=== PATIENT | male | born 2000 | race Caucasian/White ===

== ENCOUNTER 2020-06-08 09:01 | Outpatient (REF) | payer OTHER, SELFPAY | END 2020-06-08 09:02 | disposition home or self-care (01) | LOC: HO.LAB 09:01 | PROVIDERS: Visit Provider Internal Medicine | DX: Z20.828 Contact with and (suspected) exposure to other viral communicable diseases (principal) | CPT/HCPCS: C9803; U0003 ==

== ENCOUNTER 2020-07-29 13:25 | Outpatient (REF) | payer OTHER, SELFPAY | END 2020-07-29 13:26 | disposition home or self-care (01) | LOC: HO.LAB 13:25 | PROVIDERS: Visit Provider Internal Medicine | DX: Z20.828 Contact with and (suspected) exposure to other viral communicable diseases (principal) | CPT/HCPCS: C9803; U0003 ==

== ENCOUNTER 2020-08-06 07:52 | Outpatient (REF) | payer OTHER, SELFPAY | END 2020-08-06 07:53 | disposition home or self-care (01) | LOC: HO.LAB 07:52 | PROVIDERS: Visit Provider Internal Medicine | DX: Z20.828 Contact with and (suspected) exposure to other viral communicable diseases (principal) | CPT/HCPCS: 36415; C9803; U0003 ==

== ENCOUNTER 2023-06-29 15:57 | Emergency (ER) | payer OTHER, SELFPAY ==
--- NOTE | ~2023-06-29 | US_ITS ---
EXAMINATION: US SCROTUM CLINICAL INFORMATION: Left testicular lump for 6 months. COMPARISON: None available. TECHNIQUE: A sonogram of the scrotum was performed assessing agosto-scale appearance and color Doppler flow. Spectral Doppler analysis of the arterial and venous flow were performed in the testes bilaterally. FINDINGS: RIGHT: Right testicle measures 4.7 x 2 x 3.7 cm, volume 18 mL. No focal testicular parenchymal lesions are visualized. Spectral Doppler analysis of the arterial and venous flow is normal in the right testis. Right epididymal head is normal in size. Incidentally noted small 0.4 cm appendix testis. No right hydrocele or varicocele is seen. Right epididymal Doppler flow is normal. LEFT: Left testicle measures 4.7 x 1.8 x 2.9 cm, volume 13 mL. In the region of the palpable abnormality, there is a 0.2 x 0.1 x 0.2 cm anechoic, simple appearing capsular cyst. Spectral Doppler analysis of the arterial and venous flow is normal in the left testis. Small approximately 0.1 cm calcification adjacent to the medial scrotal surface of doubtful clinical significance. Left epididymal head is normal in size. Small 0.1 cm simple appearing epididymal head cyst. No left hydrocele or varicocele is seen. Left epididymal Doppler flow is normal. US/US scrotum IMPRESSION: 1. In the region of the palpable abnormality, there is a 0.2 cm simple appearing capsular testicular cyst on the left side. Out of precaution, recommend a follow-up ultrasound in 3-6 months for reevaluation. 2. Incidentally noted subcentimeter appendix testis on the right side and subcentimeter simple appearing epididymal head cyst on the left side. 3. Very small extratesticular calcification adjacent to the medial surface of the left testicle.
--- NOTE | 2023-06-29 16:34 | ED.MALEGU ---
HPI - Male Genitourinary General Chief complaint: Urogenital-Male Stated complaint: lump in left testicle Time Seen by Provider: 06/29/23 17:42 Source: patient, RN notes reviewed and old records reviewed Mode of arrival: ambulatory History of Present Illness [facility] Narrative: 22-year-old male with no significant past medical history presenting to the ED complaining of nonpainful lump to left testicle x6 months. States feels like area is growing. Denies drainage from area, dysuria/hematuria, penile discharge, testicular pain, abdominal pain, nausea/vomiting. Patient is sexually active. Denies concern for STI. Onset (ago): month(s) Related Data Allergies Allergy/AdvReac Type Severity Reaction Status Date / Time mite-Dermatophagoides Allergy Unknown Verified 06/29/23 16:40 walker fernandes [dust mite - [place]] Review of Systems Review of Systems: Constitutional: No Fever, No Chills, No Fatigue, No Malaise ENT/Mouth: No Ear Pain, No Nasal Congestion, No sore throat, No Rhinorrhea, No Swallowing Difficulty Cardiovascular: No Chest Pain, No SOB Respiratory: No Cough, No Sputum, No Dyspnea Gastrointestinal: No Nausea, No Vomiting, No Diarrhea, No Constipation, No Abdominal pain Genitourinary: No penile pain/lesions or discharge, No irregular bleeding, No Dysuria, No Urinary Frequency, No Hematuria, No Urinary Incontinence/retention, No Flank Pain Musculoskeletal: No joint pain, No Myalgias Skin: +Skin Lesions, No rash Yes all other systems are reviewed and are negative Constitutional: Constitutional: Reports as per [facility] Past Medical History Attestation statement: The following information was validated with the patient. Source: old records reviewed Social History Social History Advance Directives: No Advance Directives Information Provided: No Physical Exam Vital Signs: Vital Signs: Last Vital Signs Temp 98.2 F 06/29/23 16:35 Pulse 88 06/29/23 16:35 Resp 16 06/29/23 16:35 BP 130/74 06/29/23 16:35 Pulse Ox 98 06/29/23 16:35 O2 Del Method Room Air 06/29/23 16:35 BMI result Body Mass Index 28.5 Const: General: cooperative, healthy appearing and no acute distress Orientation/consciousness: patient oriented x3 Limitations: no limitations HEENT: Head: Yes normal to inspection and Yes atraumatic Ears: hearing grossly normal bilaterally General nose exam: Normal external nose present Face and sinus: Yes normal facial exam Eyes: General: appearance normal, both eyes and all related structures EOM: EOMs intact bilaterally Neck: Neck: Yes normal visual inspection and Yes no meningeal signs Resp: Effort & Inspection: normal respiratory effort and no respiratory distress Cardio: Rate: regular rate GI: Inspection: Yes normal to inspection Palpation (GI): Soft to palpation, nontender, no guarding and not rigid : Other: +small 2-3mm sized indurated area noted to left scrotum. Nonmobile, nontender. No erythema/warmth or fluctuance. No crepitus. No streaking General: Yes no CVA tenderness Penis: normal penis Scrotum: no ecchymosis, not erythematous and no inguinal hernias Testes: Testes normal Back/Spine/Pelvis: Back: no CVA tenderness Skin: Rashes: no rashes Wounds: no wounds Neuro: General: patient oriented x3, tone normal and no meningeal signs Cranial nerves: Yes CN's II-XII intact bilaterally Gait exam (Neuro): Normal gait present Extrem: General: Yes normal to inspection Course Course Course Narrative: This is an RME: Additional HPI, ROS, PE not included below will be deferred to primary provider. Patient is a 22 male who presents to the emergency department for evaluation of a lump to the left testicle. This was first noticed 6-7 months ago. Had a routine appointment today and mentioned it, was referred to come to the emergency department for evaluation. There is no pain, no difficulty urinating, no pain with urination,no penile discharge. Reports slight increase in size since he first noticed it. Denies concern for STI. Denies known family history of cancer. Plan: US -1827--ED care transferred to [facility] pending UA and ultrasound. Dispo per results Reevaluation(s) Reevaluation #1: US/US scrotum IMPRESSION: 1. In the region of the palpable abnormality, there is a 0.2 cm simple appearing capsular testicular cyst on the left side. Out of precaution, recommend a follow-up ultrasound in 3-6 months for reevaluation. 2. Incidentally noted subcentimeter appendix testis on the right side and subcentimeter simple appearing epididymal head cyst on the left side. 3. Very small extratesticular calcification adjacent to the medial surface of the left testicle. Patient made aware of the above results. Advised outpatient follow-up with Urology, and repeat ultrasound. All questions answered. Stable for discharge. Time: 19:58 Medical Decision Making Medical Decision Making [facility] [place] Narrative: 22-year-old male with no significant past medical history presenting to the ED complaining of nonpainful lump to left testicle x6 months. On exam vital signs stable, NAD, nontoxic appearing, physical exam as noted above. Concern for indurated cyst vs folliculitis vs ? STI. Low suspicion for hernia, epididymitis/orchitis, testicular torsion, appendicitis/diverticulitis or stone Plan: UA, CT NG. ultrasound ordered in triage Please refer to course for remaining clinical decision making, interpretation of labs/imaging results, and discussions with consultants and/or family members. Differential Diagnosis Differential Diagnoses: The differential diagnosis associated with the presentation includes As above Lab Data [facility] [place] Lab Attestation statement: I reviewed the patient's lab results. Labs: Lab Results 06/29/23 Range/Units 18:56 Urine Color Dark Yellow Urine Appearance Clear Urine pH 6.0 (5.0-9.0) Ur Specific [place] >= 1.030 H (1.005-1.025) Urine Protein Trace (Neg-Trace) mg/dL Urine Glucose (UA) Negative (Negative) mg/dL Urine Ketones 80 (Negative) mg/dL Urine Blood Negative (Negative) Urine Nitrite Negative (Negative) Ur Leukocyte Esterase Negative (Negative) Independent Interpretation I performed an independent interpretation of an: Ultrasound Radiology Impression Discussion of test interpretation with radiology: I have reviewed the radiologist's reading. External Record Review External record reviewed: Inpatient record, Office record, Outpatient record, Prior outpatient labs, Prior outpatient radiology, Primary care record and Outside ED record Tests considered The following testing was considered but not selected: As above Discharge Plan Discharge Clinical Impression: Lesion of scrotum Patient Disposition: Home, Self-Care Instructions: Testicle Pain (ED) Additional Instructions: You need to follow-up with urology. Call to make an appointment Your ultrasound today reveals a cyst to the area of the lump you have described. It is recommended that you have a repeat ultrasound in 3-6 months. If symptoms persist or worsen, area becomes painful, is rapidly growing, turns red, you are unable to urinate have abdominal pain or fever return to the ED Referrals: [facility] [Provider Group]
[2023-06-29 16:35] VITALS: BP 130/74; PULSE 88; RESP 16; TEMP 36.8; O2SAT 98; BMI 28.5
[2023-06-29 19:08] LABS: Appearance Urine Clear; Color Urine Dark Yellow; Glucose Urine UA Negative (Negative); Leukocyte Esterase Urine Negative (Negative); Nitrite Urine Negative (Negative); Specific Gravity - Urine >= 1.030 (1.005-1.025); Urine Blood Negative (Negative); Urine Ketones 80 mg/dL (Negative); Urine Protein Trace mg/dL (Neg-Trace)
[2023-06-30 01:20] LABS: CT PCR NOT DETECTED (Not Detect.); NG PCR NOT DETECTED (Not Detect.)
== END 2023-06-29 20:16 | disposition home or self-care (01) ==
PROVIDERS: Physician Assistant; Emergency Provider Emergency Medicine
DX: N50.812 Left testicular pain (principal); N50.82 Scrotal pain; N50.89 Other specified disorders of the male genital organs; N50.811 Right testicular pain; R10.2 Pelvic and perineal pain; Z79.899 Other long term (current) drug therapy
CPT/HCPCS: 0353U; 76870; 81003; 99282; 99283; 99284

== ENCOUNTER 2023-08-07 14:56 | Outpatient (AMB) | payer OTHER, SELFPAY ==
--- NOTE | 2023-08-07 15:04 | A.OFFVIS_ITS ---
Intake Intake Visit Reasons: testicular cyst Intake Note: New Patient presents for initial visit for testicular cyst Urology Medications: none Blood Thinner: none Pipe Tester Required: No Accompanied by: Self / Same As Patient Allergies mite-Dermatophagoides farinae, walker [dust mite - [place]] Allergy (Verified 08/07/23 15:51) Unknown Medication List - Last Reconciled 08/07/23 by ELICIA Pascual No Known Home Meds HPI HPI Comments History of Present Illness Details Christophe is a very pleasant 22-year-old male patient. He presents to the office today as a new patient for testicular cyst. In discussion with the patient today reports having seeked emergency room care approximately 1 month ago for a small testicular lump he had noted while washing himself in the shower. In review of patient's chart it appears scrotal ultrasound was ordered and performed. These results reviewed with the patient today. In the region of the palpable abnormality there is a 0.2 cm simple appearing capsular testicular cyst on the left side. Subcentimeter simple appearing epididymal head cyst on the left side. When asked patient reports palpable abnormality has since resolved. In assessment of the patient today no abnormalities noted during assessment of the penis, scrotum, and testicles. No pain elicited on exam. Reassurance provided. He otherwise denies any bothersome urinary issues or concerns. He denies urinary urgency, urinary frequency, incontinence, nocturia, hematuria, dysuria, foul smelling urine, changes to urinary stream, flank pain, fever, and or chills. He is happy with his current voiding parameters. Review of Systems Const All systems reviewed & are unremarkable except as noted in HPI and below Physical Exam Const General: cooperative, healthy appearing, comfortable, no acute distress, well developed, alert and awake Orientation/consciousness: patient oriented x3 Limitations: no limitations HEENT Head: Yes normal to inspection, Yes normocephalic and Yes atraumatic Ears: hearing grossly normal bilaterally Eyes General: appearance normal, both eyes and all related structures Neck Neck: Yes normal visual inspection and Yes trachea midline Chest Chest palpation & inspection: normal inspection of the chest Resp Effort & Inspection: normal respiratory effort and able to speak in complete sentences Cardio Rate: regular rate GI Inspection: Yes normal to inspection General: Yes no CVA tenderness Male General Exam: Yes normal external exam Penis: normal penis Meatus: meatus normal Scrotum: scrotum normal Testes: Testes normal Back/Spine/Pelvis Back: no CVA tenderness Skin General skin exam: no rashes or lesions noted Neuro General: patient oriented x3 Extrem General: Yes normal to inspection Psych Appearance: grossly normal and well kempt Mental Status: mental status grossly normal Speech and movement: Normal speech and movement present and Clear speech present Affect: normal affect Attitude: cooperative Thought process: Normal thought process present Thought content: Normal thought content present Insight: Good insight present (Psych) Judgement: Good judgement present (Psych) Results AMB Urinalysis, Automated UA Leukoctes 0 Peg/uL Last Edit by [employer] on 08/07/23 15:23 UA Nitrite Negative Last Edit by [employer] on 08/07/23 15:23 UA Urobilinogen 0.2 mg/dL Last Edit by [employer] on 08/07/23 15:23 UA Protein 15 mg/dL Last Edit by [employer] on 08/07/23 15:23 UA pH 8.0 Last Edit by [employer] on 08/07/23 15:23 UA Blood 0 Zan/uL Last Edit by [employer] on 08/07/23 15:23 UA Specific [place] 1.010 Last Edit by [employer] on 08/07/23 15:23 UA Ketone Negative Last Edit by [employer] on 08/07/23 15:23 UA Bilirubin 0 mg/dL Last Edit by [employer] on 08/07/23 15:23 UA Glucose 0 mg/dL Last Edit by [employer] on 08/07/23 15:23 Results Reviewed Results Reviewed: Laboratory Last Values Urine pH (Auto) 8.0 08/07/23 15:09 Specific [place] (Auto) 1.010 08/07/23 15:09 Urine Protein (Auto) 15 mg/dL 08/07/23 15:09 Glucose (UA)(Auto) 0 mg/dL 08/07/23 15:09 Urine Ketones (Auto) Negative 08/07/23 15:09 Urine Blood (Auto) 0 Zan/uL 08/07/23 15:09 Urine Nitrite (Auto) Negative 08/07/23 15:09 Urine Bilirubin (Auto) 0 mg/dL 08/07/23 15:09 Urine Urobilinogen (Auto) 0.2 mg/dL 08/07/23 15:09 Leukocyte Esterase (Auto) 0 Peg/uL 08/07/23 15:09 Date of Service: 06/29/23 EXAMINATION: US SCROTUM FINDINGS: RIGHT: Right testicle measures 4.7 x 2 x 3.7 cm, volume 18 mL. No focal testicular parenchymal lesions are visualized. Spectral Doppler analysis of the arterial and venous flow is normal in the right testis. Right epididymal head is normal in size. Incidentally noted small 0.4 cm appendix testis. No right hydrocele or varicocele is seen. Right epididymal Doppler flow is normal. LEFT: Left testicle measures 4.7 x 1.8 x 2.9 cm, volume 13 mL. In the region of the palpable abnormality, there is a 0.2 x 0.1 x 0.2 cm anechoic, simple appearing capsular cyst. Spectral Doppler analysis of the arterial and venous flow is normal in the left testis. Small approximately 0.1 cm calcification adjacent to the medial scrotal surface of doubtful clinical significance. Left epididymal head is normal in size. Small 0.1 cm simple appearing epididymal head cyst. No left hydrocele or varicocele is seen. Left epididymal Doppler flow is normal. IMPRESSION: 1. In the region of the palpable abnormality, there is a 0.2 cm simple appearing capsular testicular cyst on the left side. Out of precaution, recommend a follow-up ultrasound in 3-6 months for reevaluation. 2. Incidentally noted subcentimeter appendix testis on the right side and subcentimeter simple appearing epididymal head cyst on the left side. 3. Very small extratesticular calcification adjacent to the medial surface of the left testicle Assessment & Plan Assessment & Plan (1) Testicular cyst: Code(s): N44.2 - Benign cyst of testis Plan In office urinalysis results reviewed with the patient today; as noted above. Recent scrotal ultrasound results reviewed with the patient today; as noted above. Reassurance provided. Will obtain scrotal ultrasound in 6 months. Follow-up in 6 months with imaging to be completed prior; or sooner with any issues, concerns, and or questions. Orders: Orders AMB Urinalysis Automated Today Z13.9 - Encounter for screening, unspecified US scrotum 6 Months N44.2 - Benign cyst of testis Patient Instructions: The patient had an opportunity to ask questions regarding the treatment plan. All questions were answered. Physical exam, labs, and imaging were discussed and reviewed in detail. As well as risks, benefits, and discussion of treatment choices. No major barriers to understanding were identified. The patient expressed understanding and agreement with the above treatment plan. The patient was made aware they should contact our office by phone for worsening of their current condition, the appearance of new symptoms, or with any questions or concerns. Compliance is encouraged with any medications and follow up testing that is ordered. It is a privilege to be allowed the opportunity to participate in? your urological care.? Again, if you have any questions or concerns If you have any questions or concerns please do not hesitate to contact me. The office is [phone]. This note is constructed using voice recognition software. While every effort has been made to ensure accuracy industrial services worker errors may have been included. Yours sincerely, ELICIA Pascual Coding Level of Care Code New Pt Level 3 (23131) Diagnoses Testicular cyst N44.2
== END 2023-08-07 15:49 | disposition home or self-care (01) ==
PROVIDERS: Visit Provider Nurse Practitioner Family
DX: N44.2 Benign cyst of testis (principal)
CPT/HCPCS: 99203

== ENCOUNTER → 2023-08-07 14:56 | Outpatient (BNVA) | payer OTHER, SELFPAY | PROVIDERS: Visit Provider Nurse Practitioner Family | DX: N44.2 Benign cyst of testis (principal) | CPT/HCPCS: 81003 ==